=== PATIENT | male | born 1960 | race Caucasian/White ===

== ENCOUNTER 2016-09-22 10:48 | Day surgery (SDC) | payer BC ==
[~2016-09-22] VITALS: Ht 198.1 cm; Wt 122.0 kg
[2016-09-22] MEDS ORDERED: LACTATED RINGERS 1,000 ML IV SCH (11:23)
[2016-09-22] MEDS ORDERED: IBUP800T PO (11:28)
[2016-09-22] MEDS ORDERED: LOVA40TA2 PO (11:28)
[2016-09-22] MEDS ORDERED: CHOL2000 PO (11:28)
[2016-09-22] MEDS ORDERED: MAGN400T36 PO (11:28)
[2016-09-22 11:39] VITALS: BP 130/86
[2016-09-22] MEDS ORDERED: BUPIVACAINE/PF 0.5% ONE (12:19)
[2016-09-22] MEDS ORDERED: BUPIVACAINE/PF-EPI 0.25% 1:200K ONE (12:27)
[2016-09-22] MEDS ORDERED: PROPOFOL 10 MG/ML, 20ML ONE (12:27)
[2016-09-22] MEDS ORDERED: SUCCINYLCHOLINE 20 MG/ML, 10ML ONE (12:27)
[2016-09-22] MEDS ORDERED: ROCURONIUM 10 MG/ML ONE (12:27)
[2016-09-22] MEDS ORDERED: BUPIVACAINE/PF-EPI 0.25% 1:200K INFIL ONE (12:46)
[2016-09-22] MEDS ORDERED: OXYcodone 5 MG/5 ML ORAL.SOL UDC PO PRN (13:00)
[2016-09-22] MEDS ORDERED: LABETALOL 5MG/ML, 20ML IV PRN (13:00)
[2016-09-22] MEDS ORDERED: hydrALAzine 20 MG/ML, 1ML IV PRN (13:00)
[2016-09-22] MEDS ORDERED: ONDANSETRON 2MG/ML, 2ML IVPush PRN (13:00)
[2016-09-22] MEDS ORDERED: HYDROmorphone 1 MG/ML, 1ML IV PRN (13:00)
[2016-09-22] MEDS ORDERED: ACETAMINOPHEN 325 MG TABLET PO PRN (13:00)
[2016-09-22] MEDS ORDERED: FENTANYL PF 100 MCG/2ML IV PRN (13:00)
[2016-09-22] MEDS ORDERED: METOCLOPRAMIDE 5 MG/ML, 2ML IV PRN (13:00)
[2016-09-22] MEDS ORDERED: OXYcodone 5 MG/5 ML ORAL.SOL UDC ONE (13:17)
[2016-09-22] MEDS ORDERED: ACETAMINOPHEN 650 MG/20.3 ML UDC ONE (13:17)
== END 2016-09-22 14:15 ==
LOC: OUT 10:48
PROVIDERS: ATTEND Orthopaedic Surgery
DX: M65.332 Trigger finger, left middle finger (principal)
CPT/HCPCS: 26055; 88304; J0330; J2704; J7120; J3490